=== PATIENT | female | born 1960 | race Caucasian/White ===

== ENCOUNTER 2021-02-01 08:49 | Inpatient (IN) | payer OTHER ==
[2021-02-01 10:21] LABS: #Eosinphils 0.4 thou/uL (0.0-0.7); #Lymphocytes 0.7 thou/uL (1.20-3.40); #Monocytes 0.8 thou/uL (0.11-0.59); #Neutrophils 4.6 thou/uL (1.40-6.50); %Basophils 0.6 % (0.0-1.0); %Lymphocytes 10.9 % (21.0-51.0); %Monocytes 11.7 % (0.0-10.0); %Neutrophils 70.8 % (42.0-75.0); Hemoglobin 10.8 g/dL (12.0-16.0); Mean Corpuscular HGB CONC 34.9 g/dL (32.0-36.0); Mean Corpuscular Hemoglobin 33.4 pg (27.0-31.0); Mean Corpuscular Volume 95.7 fL (78.0-98.0); Mean Platelet Volume 6.4 fL (7.4-10.4); Platelet Count 274 thou/uL (130-400); RBC Distribution Width 13.2 % (11.5-14.5); Red Blood Cell (RBC) Count 3.24 mill/uL (4.20-5.40); White Blood Cell (WBC) Count 6.6 thou/uL (4.8-10.8)
[2021-02-01 10:36] LABS: SARS-CoV-2 NAA Rapid Test Not Detected (NotDetected)
[2021-02-01 10:41] LABS: ALT (SGPT) 33 U/L (8-55); AST (SGOT) 37 U/L (5-34); Albumin 3.1 g/dL (3.4-4.8); Alkaline Phosphatase 173 U/L (40-110); Anion Gap 15 mmol/L (10-20); BUN (Urea Nitrogen) 92 mg/dL (9.8-20.1); Bilirubin, Total 0.4 mg/dL (0.2-1.2); Calc. Creatinine Clearance 0 mL/min (70-130); Carbon Dioxide 19 mmol/L (23-31); Chloride 107 mmol/L (98-107); Globulin 4.2 g/dL (2.4-3.5); Glucose 88 mg/dL (80-115); Potassium 3.8 mmol/L (3.5-5.1); Protein, Total 7.3 g/dL (5.8-8.1); Sodium 137 mmol/L (136-145)
[2021-02-01] MEDS ORDERED: Dextrose 50% Abboject 50 ML SYRINGE SLOW IVP PRN (12:34)
[2021-02-01] MEDS ORDERED: Dextrose 5% in Water 1,000 ML IV PRN (12:34)
[2021-02-01] MEDS ORDERED: Heparin 10,000 UNITS/ 10 ML VIAL ONE (12:40)
[2021-02-01] MEDS ORDERED: Bupivacaine PF 0.5% 30 ML VIAL ONE (12:40)
[2021-02-01] MEDS ORDERED: Heparin 5,000 UNITS/ML VIAL ONE (12:40)
[2021-02-01] MEDS ORDERED: Sodium Chloride 0.9% 20 ML ONE (12:40)
[2021-02-01] MEDS ORDERED: Protamine Sulfate 50 MG/5 ML VIAL ONE (12:40)
[2021-02-01] MEDS ORDERED: Lidocaine 1% w/Epinephrine 1:100K 20 ML VIAL ONE (12:40)
[2021-02-01] MEDS ORDERED: Fentanyl 100 MCG/2 ML VIAL ONE (12:51)
[2021-02-01] MEDS ORDERED: Midazolam HCl 2 mg/2 ml Vial ONE (12:51)
[2021-02-01] MEDS ORDERED: CEFAZOLIN 1 GM VIAL ONE (13:07)
[2021-02-01] MEDS ORDERED: Sodium Chloride 0.9% 100 ML ONE (13:07)
[2021-02-01] MEDS ORDERED: Lidocaine 1% PF 5 ML VIAL ONE (13:37)
[2021-02-01] MEDS ORDERED: Dexamethasone 20 MG/5 ML VIAL ONE (13:37)
[2021-02-01] MEDS ORDERED: Ondansetron PF 4 MG/2 ML Vial ONE (13:37)
[2021-02-01] MEDS ORDERED: PROPOFOL 200 MG/20 ML VIAL ONE (13:37)
[2021-02-01] MEDS ORDERED: Labetalol HCl 100 MG/20 ML VIAL ONE (15:29)
[2021-02-01 16:36] VITALS: BMI 20.5
[2021-02-01] MEDS ORDERED: Prevnar 13-Val Conj/PF 0.5 ML SYRINGE IM ONE (17:00)
[2021-02-01] MEDS ORDERED: FLU VACC QS2021-22(6MOS UP)/PF 60 MCG/0.5 ML SYRINGE IM ONE (17:00)
[2021-02-01] MEDS ORDERED: Gabapentin 100 MG CAP PO PRN (17:15)
[2021-02-01] MEDS ORDERED: Labetalol 100 MG TAB PO PRN (17:15)
[2021-02-01] MEDS ORDERED: cloNIDine 0.3mg/24 Hour PATCH TD SCH ×2 (17:21→21:00)
[2021-02-01] MEDS ORDERED: Albuterol Sulfate 2.5 mg/3 ml Neb NEB PRN (17:30)
[2021-02-01] MEDS: Acetaminophen 325 MG TAB PO PRN (20:27)
[2021-02-01] MEDS: Amitriptyline HCl 25 MG TAB PO SCH (20:27)
[2021-02-01] MEDS: hydrALAZINE 25 MG TAB PO SCH (20:27)
[2021-02-01] MEDS: HumaLOG 300 UNITS/3 ML VIAL SC PRN (20:28)
[2021-02-02] MEDS: HumaLOG 300 UNITS/3 ML VIAL SC PRN ×3 (04:55→20:19)
[2021-02-02 06:27] LABS: #Eosinphils 0.1 thou/uL (0.0-0.7); #Lymphocytes 0.6 thou/uL (1.20-3.40); #Monocytes 0.9 thou/uL (0.11-0.59); #Neutrophils 5.4 thou/uL (1.40-6.50); %Basophils 0.3 % (0.0-1.0); %Eosinophils 0.8 % (0.0-10.0); %Lymphocytes 9.3 % (21.0-51.0); %Monocytes 12.1 % (0.0-10.0); %Neutrophils 77.6 % (42.0-75.0); Hemoglobin 8.5 g/dL (12.0-16.0); Mean Corpuscular HGB CONC 33.4 g/dL (32.0-36.0); Mean Corpuscular Hemoglobin 32.3 pg (27.0-31.0); Mean Corpuscular Volume 96.9 fL (78.0-98.0); Mean Platelet Volume 6.6 fL (7.4-10.4); Platelet Count 239 thou/uL (130-400); Red Blood Cell (RBC) Count 2.64 mill/uL (4.20-5.40)
[2021-02-02 06:51] LABS: Anion Gap 17 mmol/L (10-20); BUN (Urea Nitrogen) 93 mg/dL (9.8-20.1); Calc. Creatinine Clearance 12 mL/min (70-130); Calcium 7.9 mg/dL (7.8-10.44); Carbon Dioxide 16 mmol/L (23-31); Chloride 107 mmol/L (98-107); Glucose 202 mg/dL (80-115); Potassium 4.2 mmol/L (3.5-5.1); Sodium 136 mmol/L (136-145)
[2021-02-02] MEDS: NIFEdipine XL 60 MG TAB PO SCH (09:37)
[2021-02-02] MEDS: hydrALAZINE 25 MG TAB PO SCH ×3 (09:37→20:17)
[2021-02-02] MEDS: Carvedilol 25 MG TAB PO SCH ×2 (09:37→17:00)
[2021-02-02] MEDS ORDERED: Heparin 10,000 UNITS/ 10 ML VIAL ONE (09:47)
[2021-02-02] MEDS ORDERED: Tuberculin PPD 0.1 ML VIAL I-DERMAL SCH (10:45)
[2021-02-02 11:17] LABS: HBSAB Concentration Less than 8.00 mIU/mL; HBSAg Index 0.21 S/CO (0-0.99); Hep B Core Total Ab Non-Reactive (NonReactive); Hep B Core Total Index 0.12 S/CO (0-0.79); Hep B Surf AB Non-Reactive (NonReactive); Hep B Surf Ag Non-Reactive S/CO (NonReactive)
[2021-02-02 11:25] LABS: Hep C IgG Ab Reflex HepC Qnt (NonReactive); Hep C Index 11.47 S/CO (0-0.79)
[2021-02-02] MEDS: Acetaminophen 325 MG TAB PO PRN (11:48)
[2021-02-02] MEDS: Amitriptyline HCl 25 MG TAB PO SCH (20:18)
[2021-02-03] MEDS: HumaLOG 300 UNITS/3 ML VIAL SC PRN ×2 (04:51→16:30)
[2021-02-03] MEDS ORDERED: hydrALAZINE 20 MG/ML VIAL SLOW IVP SCH (05:15)
[2021-02-03 05:18] LABS: #Eosinphils 0.2 thou/uL (0.0-0.7); #Lymphocytes 0.7 thou/uL (1.20-3.40); #Monocytes 0.7 thou/uL (0.11-0.59); #Neutrophils 3.2 thou/uL (1.40-6.50); %Basophils 0.5 % (0.0-1.0); %Eosinophils 5.1 % (0.0-10.0); %Lymphocytes 14.5 % (21.0-51.0); %Monocytes 13.9 % (0.0-10.0); %Neutrophils 65.9 % (42.0-75.0); Hemoglobin 7.4 g/dL (12.0-16.0); Mean Corpuscular HGB CONC 33.3 g/dL (32.0-36.0); Mean Corpuscular Hemoglobin 32.2 pg (27.0-31.0); Mean Corpuscular Volume 96.8 fL (78.0-98.0); Mean Platelet Volume 6.4 fL (7.4-10.4); Platelet Count 197 thou/uL (130-400); RBC Distribution Width 13.1 % (11.5-14.5); White Blood Cell (WBC) Count 4.8 thou/uL (4.8-10.8)
[2021-02-03 05:45] LABS: Anion Gap 14 mmol/L (10-20); BUN (Urea Nitrogen) 63 mg/dL (9.8-20.1); Calc. Creatinine Clearance 14 mL/min (70-130); Calcium 7.4 mg/dL (7.8-10.44); Carbon Dioxide 24 mmol/L (23-31); Chloride 102 mmol/L (98-107); Glucose 244 mg/dL (80-115); Sodium 136 mmol/L (136-145)
[2021-02-03] MEDS: hydrALAZINE 25 MG TAB PO SCH ×3 (08:29→21:47)
[2021-02-03] MEDS: Calcitriol 0.25 MCG CAP PO SCH (08:30)
[2021-02-03] MEDS: NIFEdipine XL 60 MG TAB PO SCH (08:30)
[2021-02-03] MEDS: Carvedilol 25 MG TAB PO SCH ×2 (08:30→16:30)
[2021-02-03] MEDS ORDERED: Epoetin (ESRD) 10,000 UNITS/ML VIAL SC SCH (09:45)
[2021-02-03] MEDS ORDERED: Heparin 10,000 UNITS/ 10 ML VIAL ONE (09:47)
[2021-02-03] MEDS ORDERED: EPOETIN ALFA-EPBX (ESRD) 10,000 UNIT/ML VIAL SC SCH (12:00)
[2021-02-03] MEDS: Amitriptyline HCl 25 MG TAB PO SCH (21:48)
[2021-02-03] MEDS: Lantus 1000 UNITS/10 ML VIAL SC SCH (21:51)
[2021-02-04] MEDS: Acetaminophen 325 MG TAB PO PRN ×2 (03:46→20:52)
[2021-02-04 05:00] LABS: #Eosinphils 0.3 thou/uL (0.0-0.7); #Lymphocytes 0.8 thou/uL (1.20-3.40); #Monocytes 0.8 thou/uL (0.11-0.59); #Neutrophils 4.2 thou/uL (1.40-6.50); %Basophils 0.3 % (0.0-1.0); %Eosinophils 5.3 % (0.0-10.0); %Lymphocytes 13.5 % (21.0-51.0); %Monocytes 12.8 % (0.0-10.0); %Neutrophils 68.1 % (42.0-75.0); Hemoglobin 7.6 g/dL (12.0-16.0); Mean Corpuscular HGB CONC 33.5 g/dL (32.0-36.0); Mean Corpuscular Hemoglobin 32.7 pg (27.0-31.0); Mean Corpuscular Volume 97.4 fL (78.0-98.0); Mean Platelet Volume 6.3 fL (7.4-10.4); Platelet Count 178 thou/uL (130-400); RBC Distribution Width 13.1 % (11.5-14.5); Red Blood Cell (RBC) Count 2.33 mill/uL (4.20-5.40); White Blood Cell (WBC) Count 6.1 thou/uL (4.8-10.8)
[2021-02-04 05:25] LABS: Anion Gap 12 mmol/L (10-20); BUN (Urea Nitrogen) 40 mg/dL (9.8-20.1); Calc. Creatinine Clearance 18 mL/min (70-130); Calcium 7.7 mg/dL (7.8-10.44); Carbon Dioxide 26 mmol/L (23-31); Chloride 99 mmol/L (98-107); Glucose 102 mg/dL (80-115); Magnesium 1.9 mg/dL (1.6-2.6); Phosphorus 4.5 mg/dL (2.3-4.7); Potassium 3.6 mmol/L (3.5-5.1); Sodium 133 mmol/L (136-145)
[2021-02-04] MEDS: hydrALAZINE 25 MG TAB PO SCH ×3 (09:33→20:52)
[2021-02-04] MEDS: NIFEdipine XL 60 MG TAB PO SCH (09:37)
[2021-02-04] MEDS: Carvedilol 25 MG TAB PO SCH ×2 (09:37→17:50)
[2021-02-04 10:39] LABS: HCV log10 5.949 (.); Hep C PCR-Quant 890000 IU/mL (.)
[2021-02-04 19:57] LABS: Anion Gap 14 mmol/L (10-20); BUN (Urea Nitrogen) 49 mg/dL (9.8-20.1); Calc. Creatinine Clearance 13 mL/min (70-130); Calcium 7.9 mg/dL (7.8-10.44); Carbon Dioxide 25 mmol/L (23-31); Chloride 98 mmol/L (98-107); Glucose 219 mg/dL (80-115); Potassium 4.3 mmol/L (3.5-5.1); Sodium 133 mmol/L (136-145)
[2021-02-04] MEDS: Amitriptyline HCl 25 MG TAB PO SCH (20:52)
[2021-02-04] MEDS: Lantus 1000 UNITS/10 ML VIAL SC SCH (21:00)
[2021-02-05 00:54] LABS: Legionella Urinary Ag Negative (Negative); Strep pneumo Urine Ag NEGATIVE (NEGATIVE)
[2021-02-05] MEDS: hydrALAZINE 20 MG/ML VIAL SLOW IVP PRN (02:09)
[2021-02-05 06:53] LABS: #Eosinphils 0.3 thou/uL (0.0-0.7); #Lymphocytes 0.7 thou/uL (1.20-3.40); #Monocytes 0.6 thou/uL (0.11-0.59); %Basophils 0.2 % (0.0-1.0); %Eosinophils 6.9 % (0.0-10.0); %Lymphocytes 14.2 % (21.0-51.0); %Monocytes 12.7 % (0.0-10.0); Hemoglobin 8.8 g/dL (12.0-16.0); Mean Corpuscular HGB CONC 32.9 g/dL (32.0-36.0); Mean Corpuscular Hemoglobin 31.9 pg (27.0-31.0); Mean Platelet Volume 6.7 fL (7.4-10.4); Platelet Count 174 thou/uL (130-400); RBC Distribution Width 13.1 % (11.5-14.5); Red Blood Cell (RBC) Count 2.77 mill/uL (4.20-5.40); White Blood Cell (WBC) Count 4.6 thou/uL (4.8-10.8)
[2021-02-05 07:15] LABS: Anion Gap 13 mmol/L (10-20); BUN (Urea Nitrogen) 58 mg/dL (9.8-20.1); Calc. Creatinine Clearance 13 mL/min (70-130); Calcium 7.8 mg/dL (7.8-10.44); Carbon Dioxide 25 mmol/L (23-31); Chloride 99 mmol/L (98-107); Glucose 141 mg/dL (80-115); Magnesium 2.1 mg/dL (1.6-2.6); Phosphorus 6.8 mg/dL (2.3-4.7); Potassium 3.8 mmol/L (3.5-5.1); Sodium 133 mmol/L (136-145)
[2021-02-05] MEDS ORDERED: Heparin 10,000 UNITS/ 10 ML VIAL ONE (08:07)
[2021-02-05] MEDS: Carvedilol 25 MG TAB PO SCH ×2 (12:53→17:50)
[2021-02-05] MEDS: hydrALAZINE 25 MG TAB PO SCH ×3 (12:53→21:11)
[2021-02-05] MEDS: NIFEdipine XL 60 MG TAB PO SCH (12:56)
[2021-02-05] MEDS: Calcitriol 0.25 MCG CAP PO SCH (12:57)
[2021-02-05] MEDS: Amitriptyline HCl 25 MG TAB PO SCH (21:12)
[2021-02-05] MEDS: HumaLOG 300 UNITS/3 ML VIAL SC PRN (21:18)
[2021-02-05] MEDS: Lantus 1000 UNITS/10 ML VIAL SC SCH (21:18)
[2021-02-06] MEDS: hydrALAZINE 20 MG/ML VIAL SLOW IVP PRN ×2 (04:28→20:18)
[2021-02-06] MEDS: HumaLOG 300 UNITS/3 ML VIAL SC PRN ×2 (04:33→20:22)
[2021-02-06 05:22] LABS: #Eosinphils 0.3 thou/uL (0.0-0.7); #Lymphocytes 0.7 thou/uL (1.20-3.40); #Monocytes 0.6 thou/uL (0.11-0.59); #Neutrophils 3.8 thou/uL (1.40-6.50); %Basophils 0.1 % (0.0-1.0); %Eosinophils 5.8 % (0.0-10.0); %Lymphocytes 12.7 % (21.0-51.0); %Monocytes 11.6 % (0.0-10.0); %Neutrophils 69.8 % (42.0-75.0); Hemoglobin 8.8 g/dL (12.0-16.0); Mean Corpuscular HGB CONC 33.6 g/dL (32.0-36.0); Mean Corpuscular Hemoglobin 32.9 pg (27.0-31.0); Mean Corpuscular Volume 97.9 fL (78.0-98.0); Mean Platelet Volume 6.7 fL (7.4-10.4); Platelet Count 170 thou/uL (130-400); RBC Distribution Width 13.4 % (11.5-14.5); Red Blood Cell (RBC) Count 2.68 mill/uL (4.20-5.40); White Blood Cell (WBC) Count 5.4 thou/uL (4.8-10.8)
[2021-02-06 06:18] LABS: Anion Gap 12 mmol/L (10-20); BUN (Urea Nitrogen) 37 mg/dL (9.8-20.1); Calc. Creatinine Clearance 16 mL/min (70-130); Carbon Dioxide 28 mmol/L (23-31); Chloride 97 mmol/L (98-107); Glucose 133 mg/dL (80-115); Potassium 3.8 mmol/L (3.5-5.1); Sodium 133 mmol/L (136-145)
[2021-02-06 06:29] LABS: Prothrombin Time 13.5 sec (12.0-14.7)
[2021-02-06 06:30] LABS: PTT 33.3 sec (22.9-36.1)
[2021-02-06 06:39] LABS: D-Dimer Test 5.25 *mcg/mL (0.27-0.43)
[2021-02-06] MEDS ORDERED: NIFEdipine XL 60 MG TAB PO SCH (08:09)
[2021-02-06] MEDS: Carvedilol 25 MG TAB PO SCH ×2 (08:50→17:34)
[2021-02-06] MEDS: hydrALAZINE 25 MG TAB PO SCH ×3 (08:50→20:13)
[2021-02-06] MEDS ORDERED: Iopamidol-370 76% 500 ML 1 ML ONE (09:18)
[2021-02-06] MEDS: NIFEdipine XL 90 MG TAB PO SCH (12:09)
[2021-02-06] MEDS ORDERED: Labetalol HCl 100 MG/20 ML VIAL SLOW IVP PRN (14:00)
[2021-02-06] MEDS: Amitriptyline HCl 25 MG TAB PO SCH (20:13)
[2021-02-06] MEDS: Lantus 1000 UNITS/10 ML VIAL SC SCH (20:14)
[2021-02-07] MEDS: hydrALAZINE 20 MG/ML VIAL SLOW IVP PRN (01:01)
[2021-02-07 06:23] LABS: #Eosinphils 0.3 thou/uL (0.0-0.7); #Lymphocytes 0.7 thou/uL (1.20-3.40); #Monocytes 0.7 thou/uL (0.11-0.59); #Neutrophils 4.8 thou/uL (1.40-6.50); %Basophils 0.5 % (0.0-1.0); %Eosinophils 4.3 % (0.0-10.0); %Lymphocytes 11.2 % (21.0-51.0); Hemoglobin 8.6 g/dL (12.0-16.0); Mean Corpuscular HGB CONC 32.3 g/dL (32.0-36.0); Mean Corpuscular Hemoglobin 31.8 pg (27.0-31.0); Mean Corpuscular Volume 98.5 fL (78.0-98.0); Mean Platelet Volume 6.4 fL (7.4-10.4); Platelet Count 171 thou/uL (130-400); RBC Distribution Width 13.5 % (11.5-14.5); White Blood Cell (WBC) Count 6.6 thou/uL (4.8-10.8)
[2021-02-07 06:44] LABS: Anion Gap 12 mmol/L (10-20); BUN (Urea Nitrogen) 47 mg/dL (9.8-20.1); Calc. Creatinine Clearance 12 mL/min (70-130); Carbon Dioxide 28 mmol/L (23-31); Chloride 98 mmol/L (98-107); Glucose 78 mg/dL (80-115); Magnesium 2.1 mg/dL (1.6-2.6); Potassium 4.1 mmol/L (3.5-5.1); Sodium 134 mmol/L (136-145)
[2021-02-07] MEDS ORDERED: Heparin 10,000 UNITS/ 10 ML VIAL ONE (08:08)
[2021-02-07] MEDS ORDERED: Lisinopril 5 MG TAB PO SCH (09:00)
[2021-02-07] MEDS: hydrALAZINE 25 MG TAB PO SCH ×3 (09:40→21:13)
[2021-02-07] MEDS: NIFEdipine XL 90 MG TAB PO SCH (09:41)
[2021-02-07] MEDS: Carvedilol 25 MG TAB PO SCH ×2 (09:41→16:42)
[2021-02-07] MEDS: Lisinopril 20 MG TAB PO SCH (09:41)
[2021-02-07] MEDS: HumaLOG 300 UNITS/3 ML VIAL SC PRN (16:42)
[2021-02-07] MEDS: Amitriptyline HCl 25 MG TAB PO SCH (21:14)
[2021-02-07] MEDS: Lantus 1000 UNITS/10 ML VIAL SC SCH (21:31)
[2021-02-08 05:23] VITALS: TEMP 97.9
[2021-02-08 06:34] LABS: #Eosinphils 0.3 thou/uL (0.0-0.7); #Lymphocytes 0.7 thou/uL (1.20-3.40); #Monocytes 0.8 thou/uL (0.11-0.59); %Basophils 0.6 % (0.0-1.0); %Eosinophils 5.8 % (0.0-10.0); %Lymphocytes 11.7 % (21.0-51.0); %Monocytes 13.1 % (0.0-10.0); %Neutrophils 68.8 % (42.0-75.0); Mean Corpuscular HGB CONC 33.6 g/dL (32.0-36.0); Mean Corpuscular Hemoglobin 33.3 pg (27.0-31.0); Mean Corpuscular Volume 99.2 fL (78.0-98.0); Mean Platelet Volume 6.7 fL (7.4-10.4); Platelet Count 158 thou/uL (130-400); White Blood Cell (WBC) Count 5.8 thou/uL (4.8-10.8)
[2021-02-08 06:53] LABS: Anion Gap 11 mmol/L (10-20); BUN (Urea Nitrogen) 36 mg/dL (9.8-20.1); Calc. Creatinine Clearance 15 mL/min (70-130); Calcium 8.1 mg/dL (7.8-10.44); Carbon Dioxide 27 mmol/L (23-31); Chloride 99 mmol/L (98-107); Glucose 137 mg/dL (80-115); Magnesium 2.2 mg/dL (1.6-2.6); Phosphorus 5.3 mg/dL (2.3-4.7); Potassium 4.2 mmol/L (3.5-5.1); Sodium 133 mmol/L (136-145)
[2021-02-08] MEDS ORDERED: cloNIDine 0.3mg/24 Hour PATCH TD SCH (09:00)
[2021-02-08] MEDS: Carvedilol 25 MG TAB PO SCH (11:33)
[2021-02-08] MEDS: hydrALAZINE 25 MG TAB PO SCH (11:34)
[2021-02-08] MEDS: Calcitriol 0.25 MCG CAP PO SCH (11:34)
[2021-02-08] MEDS: NIFEdipine XL 90 MG TAB PO SCH (11:34)
[2021-02-08] MEDS: Lisinopril 20 MG TAB PO SCH (11:34)
[2021-02-08] MEDS ORDERED: Heparin 10,000 UNITS/ 10 ML VIAL ONE (11:49)
[2021-02-08 12:29] VITALS: BP 160/62
== END 2021-02-08 15:40 | disposition home or self-care (01) | DRG 673 ==
LOC: ERS 08:49 → T4-B 11:10
PROVIDERS: ADMIT Specialist; ATTEND Family Medicine
PROC: 031B0ZF Bypass Right Radial Artery to Lower Arm Vein, Open Approach (ICD-10-PCS; principal; 2021-02-01)
PROC: 0JH63XZ Insertion of Tunneled Vascular Access Device into Chest Subcutaneous Tissue and Fascia, Percutaneous Approach (ICD-10-PCS; 2021-02-01)
PROC: 02HV33Z Insertion of Infusion Device into Superior Vena Cava, Percutaneous Approach (ICD-10-PCS; 2021-02-01)
PROC: B548ZZA Ultrasonography of Superior Vena Cava, Guidance (ICD-10-PCS; 2021-02-01)
PROC: B5181ZA Fluoroscopy of Superior Vena Cava using Low Osmolar Contrast, Guidance (ICD-10-PCS; 2021-02-01)
PROC: 5A1D70Z Performance of Urinary Filtration, Intermittent, Less than 6 Hours Per Day (ICD-10-PCS; 2021-02-01)
PROC: 30233N1 Transfusion of Nonautologous Red Blood Cells into Peripheral Vein, Percutaneous Approach (ICD-10-PCS; 2021-02-04)
DX: N17.9 Acute kidney failure, unspecified (principal); J96.01 Acute respiratory failure with hypoxia; I50.33 Acute on chronic diastolic (congestive) heart failure; E87.1 Hypo-osmolality and hyponatremia; I13.2 Hypertensive heart and chronic kidney disease with heart failure and with stage 5 chronic kidney disease, or end stage renal disease; N18.6 End stage renal disease; Z20.822 Contact with and (suspected) exposure to COVID-19; E11.22 Type 2 diabetes mellitus with diabetic chronic kidney disease; B19.20 Unspecified viral hepatitis C without hepatic coma; D63.1 Anemia in chronic kidney disease; F17.210 Nicotine dependence, cigarettes, uncomplicated; Z79.4 Long term (current) use of insulin; Z79.899 Other long term (current) drug therapy
CPT/HCPCS: 36415; 36416; 36430; 71045; 71275; 76705; 80048; 80053; 83735; 84100; 84145; 85025; 85379; 85610; 85730; 86140; 86580; 86704; 86706; 86803; 86850; 86900; 86901; 87340; 87449; 87522; 87899; 90935; 93005; 93970; 94640; C1751; C1752; C1776; G0257; J0360; J0690; J1100; J1644; J1815; J2250; J2405; J2704; J2720; J3010; J3490; J7620; P9016; Q5105; Q9967; S0020; U0002

== ENCOUNTER 2021-02-11 07:44 | Outpatient (CLI) | payer OTHER | END 2021-02-11 07:45 | disposition home or self-care (01) | LOC: NM 07:44 | PROVIDERS: ATTEND Student in an Organized Health Care Education/Training Program | DX: E21.3 Hyperparathyroidism, unspecified (principal); E04.1 Nontoxic single thyroid nodule | CPT/HCPCS: 78072; A9500 ==

== ENCOUNTER 2021-03-04 07:03 | Day surgery (SDC) | payer OTHER ==
[2021-03-04 08:37] VITALS: BP 191/74
[2021-03-04] MEDS ORDERED: Lisinopril 20 MG TAB PO SCH (08:45)
[2021-03-04] MEDS ORDERED: Carvedilol 25 MG TAB PO SCH (08:45)
[2021-03-04] MEDS ORDERED: NIFEdipine XL 90 MG TAB PO SCH (08:45)
[2021-03-04] MEDS ORDERED: hydrALAZINE 25 MG TAB PO SCH (08:45)
[2021-03-04] MEDS ORDERED: FLU VACC QS2021-22(6MOS UP)/PF 60 MCG/0.5 ML SYRINGE IM ONE (09:00)
[2021-03-04] MEDS ORDERED: cloNIDine 0.1 MG TAB PO PRN (09:47)
[2021-03-04] MEDS ORDERED: cloNIDine 0.1 MG TAB ONE (09:48)
[2021-03-04] MEDS ORDERED: cloNIDine 0.1 MG TAB PO SCH (10:00)
[2021-03-04] MEDS ORDERED: Fentanyl 100 MCG/2 ML VIAL ONE (10:17)
[2021-03-04] MEDS ORDERED: Heparin 1,000 UNITS/ML VIAL ONE (10:49)
[2021-03-04] MEDS ORDERED: Iopamidol 300 61% 100 ML VIAL FS ONE (14:26)
== END 2021-03-04 12:00 | disposition home or self-care (01) ==
LOC: SPEC 07:03
PROVIDERS: ATTEND Specialist
PROC: B51W1ZZ Fluoroscopy of Dialysis Shunt/Fistula using Low Osmolar Contrast (ICD-10-PCS; principal; 2021-03-04)
DX: N18.6 End stage renal disease (principal); Z79.4 Long term (current) use of insulin; Z79.899 Other long term (current) drug therapy; Z99.2 Dependence on renal dialysis
CPT/HCPCS: 36901; J1644; J3010; Q9967

== ENCOUNTER 2021-03-18 12:26 | Outpatient (CLI) | payer OTHER ==
[2021-03-19 09:12] LABS: SARS-CoV-2 PCR by NAA Not Detected (NotDetected)
== END 2021-03-18 12:27 | disposition home or self-care (01) ==
LOC: LABBT 12:26
PROVIDERS: ATTEND Specialist
DX: Z01.818 Encounter for other preprocedural examination (principal); N18.6 End stage renal disease; Z20.822 Contact with and (suspected) exposure to COVID-19
CPT/HCPCS: 93005; 93010; U0003; U0005

== ENCOUNTER 2021-03-22 22:23 | Emergency (ER) | payer OTHER ==
[2021-03-22] MEDS ORDERED: HYDROcodone/Acetaminophen 7.5/325 mg Tablet ONE (23:26)
[2021-03-22] MEDS ORDERED: Ketorolac Tromethamine 30 MG/ML VIAL ONE (23:27)
[2021-03-23] MEDS ORDERED: traMADol HCl 50 MG TAB ONE (01:39)
[2021-03-23] MEDS ORDERED: Morphine IR 10 MG/5 ML UDCUP PO SCH (01:45)
== END 2021-03-23 01:47 | disposition home or self-care (01) ==
LOC: ERS 22:23
DX: M62.838 Other muscle spasm (principal); M25.552 Pain in left hip; F17.210 Nicotine dependence, cigarettes, uncomplicated; I11.0 Hypertensive heart disease with heart failure; I50.9 Heart failure, unspecified; E11.9 Type 2 diabetes mellitus without complications; J43.9 Emphysema, unspecified; W01.198A Fall on same level from slipping, tripping and stumbling with subsequent striking against other object, initial encounter; Z79.4 Long term (current) use of insulin; Z79.899 Other long term (current) drug therapy
CPT/HCPCS: 96372; J1885

== ENCOUNTER 2021-03-25 12:45 | Outpatient (CLI) | payer OTHER ==
[2021-03-27 00:06] LABS: SARS-CoV-2 PCR by NAA Not Detected (NotDetected)
== END 2021-03-25 12:46 | disposition home or self-care (01) ==
LOC: LABBT 12:45
PROVIDERS: ATTEND Specialist
DX: Z01.818 Encounter for other preprocedural examination (principal); N18.6 End stage renal disease; Z20.822 Contact with and (suspected) exposure to COVID-19
CPT/HCPCS: 93005; 93010; U0003; U0005

== ENCOUNTER 2021-03-29 21:17 | Emergency (ER) | payer SELFPAY ==
[2021-03-30] MEDS ORDERED: Fentanyl 100 MCG/2 ML VIAL ONE (11:21)
== END 2021-03-29 22:04 | disposition left against medical advice (07) ==
LOC: ERS 21:17
DX: Z53.21 Procedure and treatment not carried out due to patient leaving prior to being seen by health care provider (principal)
CPT/HCPCS: J3010

== ENCOUNTER 2021-03-29 22:14 | Emergency (ER) | payer SELFPAY ==
[2021-03-29] MEDS ORDERED: Diazepam 5 MG TAB ONE (23:07)
== END 2021-03-29 23:12 | disposition home or self-care (01) ==
LOC: ERS 22:14
DX: G89.29 Other chronic pain (principal); M25.552 Pain in left hip; E11.22 Type 2 diabetes mellitus with diabetic chronic kidney disease; I12.0 Hypertensive chronic kidney disease with stage 5 chronic kidney disease or end stage renal disease; N18.6 End stage renal disease; Z99.2 Dependence on renal dialysis; F17.200 Nicotine dependence, unspecified, uncomplicated
CPT/HCPCS: 99283

== ENCOUNTER 2021-03-30 10:25 | Day surgery (SDC) | payer OTHER, SELFPAY ==
[2021-03-18 14:52] VITALS: BMI 17.8
[2021-03-30] MEDS ORDERED: Protamine Sulfate 50 MG/5 ML VIAL ONE (11:26)
[2021-03-30] MEDS ORDERED: Bupivacaine 0.25% HCL 30 ML VIAL ONE ×2 (11:26→11:33)
[2021-03-30] MEDS ORDERED: Xylocaine 1% w/ Epi 1:100K 10 ML VIAL ONE (11:26)
[2021-03-30] MEDS ORDERED: Bupivacaine PF 0.5% 30 ML VIAL ONE (11:26)
[2021-03-30] MEDS ORDERED: Lidocaine 2% PF 5 ML VIAL ONE (11:26)
[2021-03-30] MEDS ORDERED: Heparin 5,000 UNITS/ML VIAL ONE (11:26)
[2021-03-30] MEDS ORDERED: Heparin 10,000 UNITS/ 10 ML VIAL ONE (11:26)
[2021-03-30 11:32] LABS: #Eosinphils 0.3 thou/uL (0.0-0.7); #Lymphocytes 1.1 thou/uL (1.20-3.40); #Monocytes 0.9 thou/uL (0.11-0.59); #Neutrophils 5.2 thou/uL (1.40-6.50); %Basophils 0.2 % (0.0-1.0); %Eosinophils 3.8 % (0.0-10.0); %Lymphocytes 14.6 % (21.0-51.0); %Monocytes 11.3 % (0.0-10.0); %Neutrophils 70.1 % (42.0-75.0); Hemoglobin 11.5 g/dL (12.0-16.0); Mean Corpuscular HGB CONC 33.4 g/dL (32.0-36.0); Mean Corpuscular Hemoglobin 33.4 pg (27.0-31.0); Mean Platelet Volume 6.5 fL (7.4-10.4); Platelet Count 278 thou/uL (130-400); RBC Distribution Width 13.9 % (11.5-14.5); Red Blood Cell (RBC) Count 3.44 mill/uL (4.20-5.40); White Blood Cell (WBC) Count 7.5 thou/uL (4.8-10.8)
[2021-03-30] MEDS ORDERED: Dextrose 50% Abboject 50 ML SYRINGE ONE ×2 (11:50→12:47)
[2021-03-30 11:54] LABS: Anion Gap 15 mmol/L (10-20); BUN (Urea Nitrogen) 62 mg/dL (9.8-20.1); Calc. Creatinine Clearance 13 mL/min (70-130); Carbon Dioxide 28 mmol/L (23-31); Chloride 98 mmol/L (98-107); Potassium 3.1 mmol/L (3.5-5.1); Sodium 138 mmol/L (136-145)
[2021-03-30 12:06] LABS: Glucose 46 mg/dL (80-115)
[2021-03-30] MEDS ORDERED: ceFAZolin 2 GM/Dextrose 50 ML IVPB ONE (12:25)
[2021-03-30] MEDS ORDERED: Fentanyl 100 MCG/2 ML VIAL ONE ×2 (12:43→14:57)
[2021-03-30] MEDS ORDERED: Phenylephrine 10 MG/ML VIAL ONE (12:45)
[2021-03-30] MEDS ORDERED: PROPOFOL 200 MG/20 ML VIAL ONE (12:48)
[2021-03-30] MEDS ORDERED: ePHEDrine 50 MG/ML VIAL ONE (12:48)
[2021-03-30] MEDS ORDERED: Rocuronium Bromide 10 MG/ML (10ML VIAL) ONE (12:48)
[2021-03-30] MEDS ORDERED: Glycopyrrolate 0.2 MG/ML 5 ML SYRINGE ONE (12:48)
[2021-03-30] MEDS ORDERED: Ondansetron PF 4 MG/2 ML Vial ONE (12:48)
[2021-03-30] MEDS ORDERED: EPINEPHrine 1 MG/10 ML Abboject SYRINGE ONE (12:48)
[2021-03-30] MEDS ORDERED: Dexamethasone 20 MG/5 ML VIAL ONE (12:48)
[2021-03-30] MEDS ORDERED: Atropine Sulfate 1 mg/10 ml Syringe ONE (13:07)
[2021-03-30] MEDS ORDERED: SUGAMMADEX SODIUM 200 MG/2 ML VIAL ONE (14:10)
[2021-03-30] MEDS ORDERED: Heparin 1,000 UNITS/ML VIAL ONE (16:18)
== END 2021-03-30 17:40 | disposition home or self-care (01) ==
LOC: SDC 10:25
PROVIDERS: ATTEND Specialist
PROC: 0XJ Anatomical Regions, Upper Extremities, Inspection (ICD-10-PCS; principal; 2021-03-30)
PROC: 0WHG43Z Insertion of Infusion Device into Peritoneal Cavity, Percutaneous Endoscopic Approach (ICD-10-PCS; principal; 2021-03-30)
DX: I12.0 Hypertensive chronic kidney disease with stage 5 chronic kidney disease or end stage renal disease (principal); E11.22 Type 2 diabetes mellitus with diabetic chronic kidney disease; N18.6 End stage renal disease; T82.510A Breakdown (mechanical) of surgically created arteriovenous fistula, initial encounter; F17.210 Nicotine dependence, cigarettes, uncomplicated; S30.0XXA Contusion of lower back and pelvis, initial encounter; M47.816 Spondylosis without myelopathy or radiculopathy, lumbar region; M48.061 Spinal stenosis, lumbar region without neurogenic claudication; I70.0 Atherosclerosis of aorta; D35.02 Benign neoplasm of left adrenal gland; D35.01 Benign neoplasm of right adrenal gland; N28.1 Cyst of kidney, acquired; N20.0 Calculus of kidney; R00.1 Bradycardia, unspecified; Z79.4 Long term (current) use of insulin; Z79.899 Other long term (current) drug therapy; Z99.2 Dependence on renal dialysis
CPT/HCPCS: 36416; 72131; 80048; 85025; C1776; J0171; J0461; J0690; J1100; J1644; J2001; J2370; J2405; J2704; J2720; J3010; J3490; S0020

== ENCOUNTER 2021-04-13 16:17 | Outpatient (CLI) | payer OTHER | END 2021-04-13 16:18 | disposition home or self-care (01) | LOC: SCSMRI 16:17 | PROVIDERS: ATTEND Nurse Practitioner Family | DX: M51.16 Intervertebral disc disorders with radiculopathy, lumbar region (principal); M47.26 Other spondylosis with radiculopathy, lumbar region; M48.061 Spinal stenosis, lumbar region without neurogenic claudication | CPT/HCPCS: 72148; 74018 ==

== ENCOUNTER 2021-04-16 09:49 | Inpatient (IN) | payer OTHER ==
[~2021-04-16 09:49] MED LIST: Heparin 10,000 UNITS/ 10 ML VIAL ONE
[2021-04-16] MEDS ORDERED: Nitroglycerin 2% Ointment 1 INCH/1 GM Packet ONE (10:29)
[2021-04-16] MEDS ORDERED: Pantoprazole 40 MG VIAL ONE (10:29)
[2021-04-16] MEDS ORDERED: Ondansetron PF 4 MG/2 ML Vial ONE (10:29)
[2021-04-16] MEDS ORDERED: hydrALAZINE 20 MG/ML VIAL ONE ×2 (10:29→13:32)
[2021-04-16 10:33] LABS: #Eosinphils 0.2 thou/uL (0.0-0.7); #Lymphocytes 1.1 thou/uL (1.20-3.40); #Monocytes 0.6 thou/uL (0.11-0.59); #Neutrophils 3.1 thou/uL (1.40-6.50); %Basophils 0.5 % (0.0-1.0); %Monocytes 11.4 % (0.0-10.0); %Neutrophils 62.1 % (42.0-75.0); Hemoglobin 13.1 g/dL (12.0-16.0); Mean Corpuscular HGB CONC 34.9 g/dL (32.0-36.0); Mean Corpuscular Hemoglobin 34.5 pg (27.0-31.0); Mean Corpuscular Volume 98.9 fL (78.0-98.0); Mean Platelet Volume 6.6 fL (7.4-10.4); Platelet Count 256 thou/uL (130-400); RBC Distribution Width 13.8 % (11.5-14.5)
[2021-04-16 10:55] LABS: ALT (SGPT) 23 U/L (8-55); AST (SGOT) 37 U/L (5-34); Albumin 3.9 g/dL (3.4-4.8); Alkaline Phosphatase 142 U/L (40-110); Anion Gap 18 mmol/L (10-20); BUN (Urea Nitrogen) 54 mg/dL (9.8-20.1); Bilirubin, Total 0.4 mg/dL (0.2-1.2); CK (CPK) 30 U/L (29-168); Calc. Creatinine Clearance 0 mL/min (70-130); Carbon Dioxide 31 mmol/L (23-31); Chloride 88 mmol/L (98-107); Globulin 3.8 g/dL (2.4-3.5); Glucose 154 mg/dL (80-115); Lipase 18 U/L (8-78); Potassium 3.5 mmol/L (3.5-5.1); Protein, Total 7.7 g/dL (5.8-8.1); Sodium 133 mmol/L (136-145)
[2021-04-16 11:00] LABS: INR-International Normal Ratio 0.9; PTT 30.9 sec (22.9-36.1); Prothrombin Time 12.2 sec (12.0-14.7)
[2021-04-16] MEDS ORDERED: Iopamidol-370 76% 500 ML 1 ML ONE (11:24)
[2021-04-16] MEDS ORDERED: Morphine 4 MG/ML VIAL ONE (11:42)
[2021-04-16 11:50] LABS: Bacteria/HPF 4+ HPF (None Seen); Bilirubin Negative (Negative); Blood, Urine Trace (Negative); Clarity Clear (Clear); Glucose, Urine (Dipstick) Normal (Negative); Ketone, Urine Negative (Negative); Leukocyte 500 Leu/uL (Negative); Nitrite Negative (Negative); Protein, Urine (Dipstick) 200 mg/dL (Neg-Trace); Specific Gravity, Urine 1.012 (1.002-1.036); Squamous Epithelial 0-3 HPF (0-3); Urobilinogen Normal mg/dL (Less than 2); WBC/HPF Greater than 50 HPF (0-3)
[2021-04-16] MEDS ORDERED: Ondansetron PF 4 MG/2 ML Vial IVP PRN (12:00)
[2021-04-16] MEDS ORDERED: Ondansetron ODT 4 MG TAB SL PRN (12:00)
[2021-04-16] MEDS ORDERED: Dextrose 5% in Water 1,000 ML IV PRN (12:08)
[2021-04-16] MEDS ORDERED: Dextrose 50% Abboject 50 ML SYRINGE SLOW IVP PRN (12:08)
[2021-04-16] MEDS ORDERED: Acetaminophen 325 MG TAB PO PRN (12:10)
[2021-04-16] MEDS ORDERED: NIFEdipine XL 90 MG TAB PO SCH (12:15)
[2021-04-16] MEDS ORDERED: niCARdipine 25 MG in Sodium Chloride 0.9% 250 ML 240 ML IVPB SCH (12:45)
[2021-04-16] MEDS ORDERED: cefTRIAXone\\ROCEPHIN 1 GM VIAL ONE (13:32)
[2021-04-16 14:13] LABS: HBSAB Concentration Less than 8.00 mIU/mL; HBSAg Index 0.42 S/CO (0-0.99); Hep B Surf AB Non-Reactive (NonReactive); Hep B Surf Ag Non-Reactive S/CO (NonReactive)
[2021-04-16] MEDS: hydrALAZINE 25 MG TAB PO SCH ×2 (14:30→20:49)
[2021-04-16] MEDS: cefTRIAXone\\ROCEPHIN 1 GM in Sodium Chloride 0.9% 100 ML IVPB SCH (15:00)
[2021-04-16] MEDS: Morphine 4 MG/ML VIAL SLOW IVP PRN ×2 (15:50→20:59)
[2021-04-16 15:55] LABS: SARS-CoV-2 NAA Rapid Test Not Detected (NotDetected)
[2021-04-16] MEDS ORDERED: FLU VACC QS2021-22(6MOS UP)/PF 60 MCG/0.5 ML SYRINGE IM ONE (16:30)
[2021-04-16] MEDS ORDERED: Prevnar 13-Val Conj/PF 0.5 ML SYRINGE IM ONE (16:30)
[2021-04-16] MEDS: Carvedilol 25 MG TAB PO SCH (17:00)
[2021-04-16] MEDS: Pantoprazole 40 MG VIAL IVP SCH (20:50)
[2021-04-16] MEDS: HumaLOG 300 UNITS/3 ML VIAL SC PRN (21:29)
[2021-04-16] MEDS: hydrALAZINE 20 MG/ML VIAL SLOW IVP PRN (21:53)
[2021-04-16] MEDS ORDERED: HYDROcodone/Acetaminophen 5/325 mg Tablet PO PRN (23:22)
[2021-04-16] MEDS ORDERED: Labetalol HCl 100 MG/20 ML VIAL SLOW IVP SCH (23:30)
[2021-04-17] MEDS: hydrALAZINE 20 MG/ML VIAL SLOW IVP PRN (01:36)
[2021-04-17] MEDS: niCARdipine 25 MG in Sodium Chloride 0.9% 250 ML 250 ML IVPB SCH ×2 (02:28→05:04)
[2021-04-17] MEDS ORDERED: ALPRAZolam 0.25 MG TAB PO SCH (02:45)
[2021-04-17] MEDS ORDERED: NICARDIPINE IVPB SCH (06:30)
[2021-04-17] MEDS ORDERED: SODIUM CHLORIDE 0.9% IVPB SCH (06:30)
[2021-04-17] MEDS ORDERED: ADMIXTURE FEE CHEMO IVPB SCH (06:30)
[2021-04-17] MEDS: Morphine 4 MG/ML VIAL SLOW IVP PRN ×2 (07:45→14:58)
[2021-04-17 08:35] LABS: #Eosinphils 0.2 thou/uL (0.0-0.7); #Lymphocytes 1.1 thou/uL (1.20-3.40); #Monocytes 0.8 thou/uL (0.11-0.59); #Neutrophils 3.8 thou/uL (1.40-6.50); %Basophils 0.3 % (0.0-1.0); %Eosinophils 3.2 % (0.0-10.0); %Lymphocytes 18.6 % (21.0-51.0); %Monocytes 12.8 % (0.0-10.0); %Neutrophils 65.1 % (42.0-75.0); Hemoglobin 10.8 g/dL (12.0-16.0); Mean Corpuscular HGB CONC 33.2 g/dL (32.0-36.0); Mean Corpuscular Hemoglobin 33.1 pg (27.0-31.0); Mean Corpuscular Volume 99.6 fL (78.0-98.0); Mean Platelet Volume 6.6 fL (7.4-10.4); Platelet Count 225 thou/uL (130-400); RBC Distribution Width 13.7 % (11.5-14.5); Red Blood Cell (RBC) Count 3.28 mill/uL (4.20-5.40); White Blood Cell (WBC) Count 5.9 thou/uL (4.8-10.8)
[2021-04-17] MEDS: Carvedilol 25 MG TAB PO SCH ×2 (08:52→17:01)
[2021-04-17] MEDS: hydrALAZINE 25 MG TAB PO SCH ×3 (08:53→20:32)
[2021-04-17] MEDS: NIFEdipine XL 90 MG TAB PO SCH (08:53)
[2021-04-17] MEDS: Lisinopril 20 MG TAB PO SCH (08:53)
[2021-04-17 08:54] LABS: Anion Gap 12 mmol/L (10-20); BUN (Urea Nitrogen) 28 mg/dL (9.8-20.1); Calc. Creatinine Clearance 14 mL/min (70-130); Calcium 9.7 mg/dL (7.8-10.44); Carbon Dioxide 28 mmol/L (23-31); Chloride 100 mmol/L (98-107); Glucose 156 mg/dL (80-115); Potassium 3.2 mmol/L (3.5-5.1); Sodium 137 mmol/L (136-145)
[2021-04-17] MEDS: Pantoprazole 40 MG VIAL IVP SCH ×2 (08:54→20:32)
[2021-04-17] MEDS ORDERED: Enoxaparin Sodium 30 MG/0.3 ML SYRINGE SC SCH (09:00)
[2021-04-17] MEDS: HumaLOG 300 UNITS/3 ML VIAL SC PRN ×2 (10:40→17:01)
[2021-04-17] MEDS: cefTRIAXone\\ROCEPHIN 1 GM in Sodium Chloride 0.9% 100 ML IVPB SCH (14:54)
[2021-04-17] MEDS ORDERED: Ondansetron PF 4 MG/2 ML Vial IVP PRN (16:15)
[2021-04-17] MEDS ORDERED: diphenhydrAMINE 25 MG CAP PO PRN (16:15)
[2021-04-17] MEDS ORDERED: diphenhydrAMINE 50 MG/ML VIAL IM/IV PRN (16:15)
[2021-04-17] MEDS ORDERED: Promethazine HCl 25 MG/ML VIAL IM PRN (16:15)
[2021-04-17] MEDS ORDERED: Naloxone HCl 0.4 mg/ml Vial IV PRN (16:15)
[2021-04-17] MEDS ORDERED: Zolpidem Tartrate 5 MG TAB PO PRN (16:15)
[2021-04-17] MEDS ORDERED: Morphine Sulfate 100 MG in Dextrose 5% in Water 98 ML IV SCH (16:15)
[2021-04-18] MEDS: hydrALAZINE 20 MG/ML VIAL SLOW IVP PRN (04:26)
[2021-04-18 04:35] LABS: #Eosinphils 0.2 thou/uL (0.0-0.7); #Lymphocytes 1.3 thou/uL (1.20-3.40); #Monocytes 0.9 thou/uL (0.11-0.59); #Neutrophils 4.4 thou/uL (1.40-6.50); %Basophils 0.5 % (0.0-1.0); %Eosinophils 3.4 % (0.0-10.0); %Lymphocytes 19.3 % (21.0-51.0); %Monocytes 12.6 % (0.0-10.0); %Neutrophils 64.2 % (42.0-75.0); Hemoglobin 10.6 g/dL (12.0-16.0); Mean Corpuscular HGB CONC 32.6 g/dL (32.0-36.0); Mean Corpuscular Hemoglobin 33.1 pg (27.0-31.0); Mean Platelet Volume 6.8 fL (7.4-10.4); Platelet Count 221 thou/uL (130-400); RBC Distribution Width 13.8 % (11.5-14.5); Red Blood Cell (RBC) Count 3.21 mill/uL (4.20-5.40); White Blood Cell (WBC) Count 6.8 thou/uL (4.8-10.8)
[2021-04-18 05:13] LABS: Anion Gap 15 mmol/L (10-20); BUN (Urea Nitrogen) 36 mg/dL (9.8-20.1); Calc. Creatinine Clearance 11 mL/min (70-130); Carbon Dioxide 25 mmol/L (23-31); Chloride 100 mmol/L (98-107); Glucose 183 mg/dL (80-115); Potassium 3.4 mmol/L (3.5-5.1); Sodium 137 mmol/L (136-145)
[2021-04-18] MEDS: hydrALAZINE 25 MG TAB PO SCH ×3 (08:34→19:57)
[2021-04-18] MEDS: Lisinopril 20 MG TAB PO SCH (08:34)
[2021-04-18] MEDS: Carvedilol 25 MG TAB PO SCH ×2 (08:35→17:05)
[2021-04-18] MEDS: NIFEdipine XL 90 MG TAB PO SCH (08:35)
[2021-04-18] MEDS: Pantoprazole 40 MG VIAL IVP SCH ×2 (08:36→19:57)
[2021-04-18] MEDS: HumaLOG 300 UNITS/3 ML VIAL SC PRN ×2 (11:44→17:05)
[2021-04-18] MEDS: cefTRIAXone\\ROCEPHIN 1 GM in Sodium Chloride 0.9% 100 ML IVPB SCH (12:36)
[2021-04-19] MEDS: hydrALAZINE 20 MG/ML VIAL SLOW IVP PRN ×3 (03:54→23:47)
[2021-04-19] MEDS ORDERED: Labetalol HCl 100 MG/20 ML VIAL SLOW IVP SCH ×4 (04:00→08:15)
[2021-04-19 04:23] LABS: #Eosinphils 0.2 thou/uL (0.0-0.7); #Lymphocytes 0.9 thou/uL (1.20-3.40); #Monocytes 0.6 thou/uL (0.11-0.59); #Neutrophils 3.9 thou/uL (1.40-6.50); %Basophils 0.3 % (0.0-1.0); %Eosinophils 3.8 % (0.0-10.0); %Lymphocytes 15.8 % (21.0-51.0); %Neutrophils 69.1 % (42.0-75.0); Hemoglobin 10.5 g/dL (12.0-16.0); Mean Corpuscular HGB CONC 33.2 g/dL (32.0-36.0); Mean Corpuscular Hemoglobin 33.2 pg (27.0-31.0); Mean Corpuscular Volume 99.9 fL (78.0-98.0); Mean Platelet Volume 6.5 fL (7.4-10.4); Platelet Count 204 thou/uL (130-400); RBC Distribution Width 13.7 % (11.5-14.5); Red Blood Cell (RBC) Count 3.16 mill/uL (4.20-5.40); White Blood Cell (WBC) Count 5.7 thou/uL (4.8-10.8)
[2021-04-19 04:49] LABS: Anion Gap 15 mmol/L (10-20); BUN (Urea Nitrogen) 47 mg/dL (9.8-20.1); Calc. Creatinine Clearance 10 mL/min (70-130); Calcium 9.3 mg/dL (7.8-10.44); Carbon Dioxide 24 mmol/L (23-31); Chloride 102 mmol/L (98-107); Glucose 196 mg/dL (80-115); Potassium 3.7 mmol/L (3.5-5.1); Sodium 137 mmol/L (136-145)
[2021-04-19] MEDS ORDERED: Labetalol HCl 100 MG/20 ML VIAL ONE (07:05)
[2021-04-19] MEDS ORDERED: Labetalol HCl 100 MG/20 ML VIAL SLOW IVP PRN (08:16)
[2021-04-19] MEDS: hydrALAZINE 25 MG TAB PO SCH ×3 (08:22→20:45)
[2021-04-19] MEDS: NIFEdipine XL 90 MG TAB PO SCH (08:22)
[2021-04-19] MEDS: Pantoprazole 40 MG VIAL IVP SCH ×2 (08:22→20:45)
[2021-04-19] MEDS: Carvedilol 25 MG TAB PO SCH ×2 (08:22→15:54)
[2021-04-19] MEDS: Lisinopril 20 MG TAB PO SCH (08:22)
[2021-04-19] MEDS ORDERED: niCARdipine 40MG In NaCl 40 MG/200 ML BAG IVPB SCH (08:30)
[2021-04-19] MEDS ORDERED: niCARdipine 25 MG in Sodium Chloride 0.9% 250 ML 250 ML IVPB SCH (08:45)
[2021-04-19] MEDS ORDERED: Heparin 10,000 UNITS/ 10 ML VIAL ONE (08:51)
[2021-04-19] MEDS ORDERED: ALPRAZolam 0.5 MG TAB PO SCH (09:00)
[2021-04-19] MEDS ORDERED: Hydrochlorothiazide 25 MG TAB PO SCH (09:00)
[2021-04-19 10:58] LABS: Free T4 (Free Thyroxine) 1.03 ng/dL (0.70-1.48); Thyroid Stimulating Hormone 5.8888 uIU/mL (0.35-4.94)
[2021-04-19] MEDS: HumaLOG 300 UNITS/3 ML VIAL SC PRN ×2 (11:15→17:57)
[2021-04-19] MEDS: cefTRIAXone\\ROCEPHIN 1 GM in Sodium Chloride 0.9% 100 ML IVPB SCH (13:08)
[2021-04-19] MEDS: Ondansetron PF 4 MG/2 ML Vial IVP PRN (20:45)
[2021-04-19] MEDS ORDERED: cloNIDine 0.1 MG TAB PO PRN (23:43)
[2021-04-20 05:03] LABS: #Eosinphils 0.2 thou/uL (0.0-0.7); #Lymphocytes 1.1 thou/uL (1.20-3.40); #Monocytes 0.6 thou/uL (0.11-0.59); #Neutrophils 3.3 thou/uL (1.40-6.50); %Basophils 0.4 % (0.0-1.0); %Eosinophils 4.2 % (0.0-10.0); %Lymphocytes 20.8 % (21.0-51.0); %Monocytes 11.2 % (0.0-10.0); %Neutrophils 63.4 % (42.0-75.0); Hemoglobin 10.4 g/dL (12.0-16.0); Mean Corpuscular HGB CONC 33.2 g/dL (32.0-36.0); Mean Corpuscular Hemoglobin 33.3 pg (27.0-31.0); Mean Platelet Volume 6.4 fL (7.4-10.4); Platelet Count 202 thou/uL (130-400); RBC Distribution Width 13.8 % (11.5-14.5); Red Blood Cell (RBC) Count 3.11 mill/uL (4.20-5.40); White Blood Cell (WBC) Count 5.3 thou/uL (4.8-10.8)
[2021-04-20 05:25] LABS: Anion Gap 12 mmol/L (10-20); BUN (Urea Nitrogen) 23 mg/dL (9.8-20.1); Calc. Creatinine Clearance 15 mL/min (70-130); Calcium 9.2 mg/dL (7.8-10.44); Carbon Dioxide 26 mmol/L (23-31); Chloride 101 mmol/L (98-107); Glucose 170 mg/dL (80-115); Potassium 3.9 mmol/L (3.5-5.1); Sodium 135 mmol/L (136-145)
[2021-04-20] MEDS: Labetalol HCl 100 MG TAB PO SCH ×3 (08:35→20:53)
[2021-04-20] MEDS: NIFEdipine XL 90 MG TAB PO SCH (08:36)
[2021-04-20] MEDS: Lisinopril 20 MG TAB PO SCH (08:36)
[2021-04-20] MEDS: Pantoprazole 40 MG VIAL IVP SCH ×2 (08:38→20:12)
[2021-04-20] MEDS ORDERED: Labetalol HCl 100 MG TAB PO SCH (09:00)
[2021-04-20] MEDS ORDERED: NIFEdipine XL 60 MG TAB PO SCH (09:00)
[2021-04-20] MEDS: Carvedilol 25 MG TAB PO SCH (09:46)
[2021-04-20] MEDS: hydrALAZINE 25 MG TAB PO SCH ×3 (10:37→20:12)
[2021-04-20] MEDS: HumaLOG 300 UNITS/3 ML VIAL SC PRN (12:10)
[2021-04-20] MEDS: cefTRIAXone\\ROCEPHIN 1 GM in Sodium Chloride 0.9% 100 ML IVPB SCH (13:03)
[2021-04-20 14:35] VITALS: BMI 18.5
[2021-04-20] MEDS: Ondansetron PF 4 MG/2 ML Vial IVP PRN (20:12)
[2021-04-20] MEDS: NIFEdipine XL 60 MG TAB PO SCH (20:12)
[2021-04-21] MEDS: Labetalol HCl 100 MG TAB PO SCH ×4 (03:09→15:20)
[2021-04-21 03:12] VITALS: TEMP 97.9
[2021-04-21 05:47] LABS: #Eosinphils 0.2 thou/uL (0.0-0.7); #Monocytes 0.6 thou/uL (0.11-0.59); %Basophils 0.3 % (0.0-1.0); %Eosinophils 4.8 % (0.0-10.0); %Lymphocytes 20.3 % (21.0-51.0); %Monocytes 12.9 % (0.0-10.0); %Neutrophils 61.7 % (42.0-75.0); Hemoglobin 9.8 g/dL (12.0-16.0); Mean Corpuscular HGB CONC 33.7 g/dL (32.0-36.0); Mean Corpuscular Hemoglobin 33.9 pg (27.0-31.0); Mean Platelet Volume 6.5 fL (7.4-10.4); Platelet Count 185 thou/uL (130-400); RBC Distribution Width 13.6 % (11.5-14.5); Red Blood Cell (RBC) Count 2.88 mill/uL (4.20-5.40); White Blood Cell (WBC) Count 4.9 thou/uL (4.8-10.8)
[2021-04-21 06:02] LABS: Anion Gap 14 mmol/L (10-20); BUN (Urea Nitrogen) 36 mg/dL (9.8-20.1); Calc. Creatinine Clearance 11 mL/min (70-130); Calcium 8.9 mg/dL (7.8-10.44); Carbon Dioxide 23 mmol/L (23-31); Chloride 101 mmol/L (98-107); Glucose 181 mg/dL (80-115); Potassium 3.9 mmol/L (3.5-5.1); Sodium 134 mmol/L (136-145)
[2021-04-21] MEDS ORDERED: oxyCODONE 5 MG TAB PO PRN (08:36)
[2021-04-21] MEDS ORDERED: Heparin 10,000 UNITS/ 10 ML VIAL ONE (08:54)
[2021-04-21] MEDS: Lisinopril 20 MG TAB PO SCH ×2 (09:01→10:25)
[2021-04-21] MEDS: Acetaminophen 500 MG TAB PO SCH ×3 (09:01→13:52)
[2021-04-21] MEDS: hydrALAZINE 25 MG TAB PO SCH ×2 (09:01→10:31)
[2021-04-21] MEDS ORDERED: Lidocaine 1% PF 5 ML VIAL ONE (09:01)
[2021-04-21] MEDS ORDERED: PROPOFOL 200 MG/20 ML VIAL ONE (09:01)
[2021-04-21] MEDS: NIFEdipine XL 60 MG TAB PO SCH ×2 (09:02→10:26)
[2021-04-21] MEDS: Pantoprazole 40 MG VIAL IVP SCH ×2 (09:02→10:28)
[2021-04-21] MEDS ORDERED: hydrALAZINE 25 MG TAB PO SCH ×3 (10:22→15:00)
[2021-04-21 11:21] VITALS: BP 159/63
[2021-04-21] MEDS: cefTRIAXone\\ROCEPHIN 1 GM in Sodium Chloride 0.9% 100 ML IVPB SCH (13:53)
[2021-04-21] MEDS ORDERED: Metoclopramide HCl 10 MG/2 ML VIAL IVP SCH (18:45)
[2021-04-21] MEDS ORDERED: Polyethylene Glycol 3350 17 GM Packet PO SCH (21:00)
[2021-04-22] MEDS ORDERED: Metoclopramide HCl 10 MG/2 ML VIAL IVP SCH (04:00)
[2021-04-25 10:37] LABS: Cortisol,Free Ur 6 ug/L (Undefined); Cortisol,Ur Free 24 Hr 2 ug/24 hr (6-42)
== END 2021-04-21 21:51 | disposition home or self-care (01) | DRG 377 ==
LOC: ERS 09:49 → CCU 12:20 → 2NO 04-17 19:34 → CCU 04-19 09:20 → 2NO 04-19 13:59
PROVIDERS: ADMIT Internal Medicine; ATTEND Hospitalist
PROC: 5A1D70Z Performance of Urinary Filtration, Intermittent, Less than 6 Hours Per Day (ICD-10-PCS; 2021-04-16)
PROC: 0DB98ZX Excision of Duodenum, Via Natural or Artificial Opening Endoscopic, Diagnostic (ICD-10-PCS; principal; 2021-04-21)
PROC: 0DB78ZX Excision of Stomach, Pylorus, Via Natural or Artificial Opening Endoscopic, Diagnostic (ICD-10-PCS; 2021-04-21)
DX: K29.71 Gastritis, unspecified, with bleeding (principal); N18.6 End stage renal disease; I16.1 Hypertensive emergency; N39.0 Urinary tract infection, site not specified; E44.0 Moderate protein-calorie malnutrition; Z68.1 Body mass index [BMI] 19.9 or less, adult; N25.81 Secondary hyperparathyroidism of renal origin; I12.0 Hypertensive chronic kidney disease with stage 5 chronic kidney disease or end stage renal disease; Z20.822 Contact with and (suspected) exposure to COVID-19; E11.22 Type 2 diabetes mellitus with diabetic chronic kidney disease; G89.29 Other chronic pain; F41.9 Anxiety disorder, unspecified; M48.061 Spinal stenosis, lumbar region without neurogenic claudication; K59.03 Drug induced constipation; T40.605A Adverse effect of unspecified narcotics, initial encounter; B96.20 Unspecified Escherichia coli [E. coli] as the cause of diseases classified elsewhere; F17.210 Nicotine dependence, cigarettes, uncomplicated; D63.1 Anemia in chronic kidney disease; E87.6 Hypokalemia; R13.10 Dysphagia, unspecified; E11.43 Type 2 diabetes mellitus with diabetic autonomic (poly)neuropathy; K31.84 Gastroparesis; Z28.21 Immunization not carried out because of patient refusal; Z99.2 Dependence on renal dialysis; Z79.899 Other long term (current) drug therapy; Z79.4 Long term (current) use of insulin; Z90.89 Acquired absence of other organs; Z98.890 Other specified postprocedural states; Z98.49 Cataract extraction status, unspecified eye; Z91.81 History of falling
CPT/HCPCS: 36415; 36416; 74177; 80048; 80053; 81003; 81015; 82088; 82384; 82530; 82550; 83690; 83835; 84244; 84439; 84443; 84484; 85025; 85610; 85730; 86706; 86850; 86900; 86901; 87077; 87086; 87186; 87340; 88305; 90935; 93005; 96365; 96375; 96376; C9113; G0257; J0360; J0696; J1644; J1815; J2270; J2274; J2405; J2704; J3490; J7050; J7070; Q9967; U0002

== ENCOUNTER 2021-06-25 13:52 | Inpatient (IN) | payer OTHER ==
[~2021-06-25 13:52] MED LIST changes: -Heparin 10,000 UNITS/ 10 ML VIAL ONE; +Iopamidol 370 76% 100 ML VIAL ONE
[2021-06-25 14:37] LABS: #Eosinphils 0.1 thou/uL (0.0-0.7); #Lymphocytes 0.9 thou/uL (1.20-3.40); #Monocytes 0.7 thou/uL (0.11-0.59); #Neutrophils 5.1 thou/uL (1.40-6.50); %Basophils 0.3 % (0.0-1.0); %Eosinophils 2.1 % (0.0-10.0); %Lymphocytes 13.1 % (21.0-51.0); %Monocytes 10.5 % (0.0-10.0); Hemoglobin 9.5 g/dL (12.0-16.0); Mean Corpuscular Hemoglobin 34.6 pg (27.0-31.0); Mean Platelet Volume 6.6 fL (7.4-10.4); Platelet Count 184 thou/uL (130-400); RBC Distribution Width 12.4 % (11.5-14.5); Red Blood Cell (RBC) Count 2.75 mill/uL (4.20-5.40); White Blood Cell (WBC) Count 6.9 thou/uL (4.8-10.8)
[2021-06-25 15:00] LABS: ALT (SGPT) 60 U/L (8-55); AST (SGOT) 67 U/L (5-34); Albumin 3.1 g/dL (3.4-4.8); Alkaline Phosphatase 156 U/L (40-110); Anion Gap 25 mmol/L (10-20); BUN (Urea Nitrogen) 90 mg/dL (9.8-20.1); Bilirubin, Total 0.5 mg/dL (0.2-1.2); Calc. Creatinine Clearance 0 mL/min (70-130); Calcium 9.4 mg/dL (7.8-10.44); Carbon Dioxide 20 mmol/L (23-31); Chloride 94 mmol/L (98-107); Glucose 159 mg/dL (80-115); Lipase 24 U/L (8-78); Potassium 6.2 mmol/L (3.5-5.1); Protein, Total 7.1 g/dL (5.8-8.1); Sodium 133 mmol/L (136-145)
[2021-06-25] MEDS ORDERED: Calcium Chloride 1 GM/10 ML Abboject SYRINGE IVP SCH (15:46)
[2021-06-25] MEDS ORDERED: Insulin Regular 300 UNITS/3 ML VIAL IVP SCH (15:46)
[2021-06-25] MEDS ORDERED: Ondansetron PF 4 MG/2 ML Vial IVP PRN (15:49)
[2021-06-25] MEDS ORDERED: Sodium Bicarb 50 MEQ/50 ML Abboject 8.4% SYRINGE IVP SCH (16:00)
[2021-06-25] MEDS ORDERED: Sodium Bicarbonate 2.5 MEQ/5 ML VIAL ONE (16:05)
[2021-06-25] MEDS ORDERED: Calcium Chloride 1 GM/10 ML Abboject SYRINGE ONE (16:05)
[2021-06-25] MEDS ORDERED: Insulin Regular 300 UNITS/3 ML VIAL ONE (16:05)
[2021-06-25] MEDS ORDERED: Sodium Bicarb 50 MEQ/50 ML Abboject 8.4% SYRINGE ONE (16:07)
[2021-06-25] MEDS ORDERED: OxyCODONE IR 30 MG TAB PO PRN (17:01)
[2021-06-25] MEDS ORDERED: Labetalol HCl 100 MG/20 ML VIAL SLOW IVP PRN (17:02)
[2021-06-25] MEDS ORDERED: Loperamide HCl 2 MG CAP PO PRN (17:14)
[2021-06-25] MEDS: Budesonide 0.5 MG/2 ML NEB NEB SCH (19:22)
[2021-06-25] MEDS: hydrALAZINE 25 MG TAB PO SCH (20:19)
[2021-06-25 20:20] LABS: ALT (SGPT) 63 U/L (8-55); AST (SGOT) 69 U/L (5-34); Albumin 3.3 g/dL (3.4-4.8); Alkaline Phosphatase 173 U/L (40-110); Anion Gap 25 mmol/L (10-20); BUN (Urea Nitrogen) 88 mg/dL (9.8-20.1); Bilirubin, Total 0.5 mg/dL (0.2-1.2); Calc. Creatinine Clearance 5 mL/min (70-130); Calcium 9.8 mg/dL (7.8-10.44); Carbon Dioxide 18 mmol/L (23-31); Chloride 95 mmol/L (98-107); Globulin 3.6 g/dL (2.4-3.5); Glucose 250 mg/dL (80-115); Protein, Total 6.9 g/dL (5.8-8.1); Sodium 131 mmol/L (136-145)
[2021-06-25] MEDS: Carvedilol 25 MG TAB PO SCH (20:20)
[2021-06-25] MEDS: oxyCODONE 5 MG TAB PO PRN (20:20)
[2021-06-25 20:24] LABS: Troponin I 0.032 ng/mL (< 0.028)
[2021-06-25 20:25] LABS: Potassium 6.6 mmol/L (3.5-5.1)
[2021-06-25 20:33] LABS: Troponin I 0.031 ng/mL (< 0.028)
[2021-06-25] MEDS ORDERED: Furosemide 100 MG/10 ML VIAL SLOW IVP SCH (21:15)
[2021-06-25] MEDS ORDERED: Calcium Gluconate 4.6 MEQ in Sodium Chloride 0.9% 100 ML IVPB SCH (21:30)
[2021-06-25 22:04] LABS: Actual Bicarbonate (HCO3a) 22.3 mEq/L (22-28); Base Excess (BEa) -2.5 mEq/L (-2.0 to +3.0); CO2 Tension 38.9 mmHg (35.0-45.0); Calcium, Ionized (arterial) 1.19 mmol/L (1.12-1.30); Hemoglobin (Hb) 12.2 g/dL (12.0-16.0); O2 Tension (PaO2), arterial 101.3 mmHg (> 80.0); Potassium - ABG Lab 6.19 mmol/L (3.70-5.30); pH, Arterial 7.38 (7.35-7.45)
[2021-06-25 22:08] LABS: Puncture Site LRA
[2021-06-25 22:10] LABS: ALV-art Gradient 78.235 mmHg (0-20)
[2021-06-25] MEDS ORDERED: cloNIDine 0.1 MG TAB PO PRN (22:44)
[2021-06-25] MEDS ORDERED: Dextrose 5% in Water 1,000 ML IV PRN (22:45)
[2021-06-25] MEDS ORDERED: Insulin Regular 300 UNITS/3 ML VIAL SC PRN ×2 (22:45→22:47)
[2021-06-25] MEDS ORDERED: Dextrose 50% Abboject 50 ML SYRINGE IVP PRN (22:45)
[2021-06-25] MEDS ORDERED: HumaLOG 300 UNITS/3 ML VIAL SC PRN ×2 (22:45→22:47)
[2021-06-25] MEDS ORDERED: Sevelamer Carbonate 800 MG TAB PO SCH (23:15)
[2021-06-25] MEDS: cloNIDine 0.1 MG TAB PO PRN (23:42)
[2021-06-26 00:15] LABS: Anion Gap 25 mmol/L (10-20); BUN (Urea Nitrogen) 82 mg/dL (9.8-20.1); Calc. Creatinine Clearance 5 mL/min (70-130); Calcium 10.4 mg/dL (7.8-10.44); Carbon Dioxide 21 mmol/L (23-31); Chloride 93 mmol/L (98-107); Glucose 317 mg/dL (80-115); Potassium 5.6 mmol/L (3.5-5.1); Sodium 133 mmol/L (136-145)
[2021-06-26] MEDS: oxyCODONE 5 MG TAB PO PRN (03:50)
[2021-06-26] MEDS: cloNIDine 0.1 MG TAB PO PRN ×2 (03:50→23:43)
[2021-06-26 04:56] LABS: #Eosinphils 0.1 thou/uL (0.0-0.7); #Lymphocytes 0.7 thou/uL (1.20-3.40); #Monocytes 0.7 thou/uL (0.11-0.59); #Neutrophils 4.6 thou/uL (1.40-6.50); %Basophils 0.3 % (0.0-1.0); %Eosinophils 2.3 % (0.0-10.0); %Monocytes 10.8 % (0.0-10.0); %Neutrophils 75.6 % (42.0-75.0); Hemoglobin 9.1 g/dL (12.0-16.0); Mean Corpuscular HGB CONC 33.5 g/dL (32.0-36.0); Mean Corpuscular Hemoglobin 33.7 pg (27.0-31.0); Mean Platelet Volume 6.9 fL (7.4-10.4); Platelet Count 197 thou/uL (130-400); RBC Distribution Width 12.3 % (11.5-14.5); Red Blood Cell (RBC) Count 2.69 mill/uL (4.20-5.40); White Blood Cell (WBC) Count 6.1 thou/uL (4.8-10.8)
[2021-06-26 05:20] LABS: ALT (SGPT) 49 U/L (8-55); AST (SGOT) 44 U/L (5-34); Alkaline Phosphatase 140 U/L (40-110); Anion Gap 25 mmol/L (10-20); BUN (Urea Nitrogen) 75 mg/dL (9.8-20.1); Bilirubin, Total 0.5 mg/dL (0.2-1.2); Calc. Creatinine Clearance 5 mL/min (70-130); Calcium 9.8 mg/dL (7.8-10.44); Carbon Dioxide 19 mmol/L (23-31); Chloride 97 mmol/L (98-107); Globulin 3.7 g/dL (2.4-3.5); Glucose 227 mg/dL (80-115); Magnesium 2.4 mg/dL (1.6-2.6); Potassium 4.7 mmol/L (3.5-5.1); Protein, Total 6.7 g/dL (5.8-8.1); Sodium 136 mmol/L (136-145)
[2021-06-26 05:24] LABS: Phosphorus 10.3 mg/dL (2.3-4.7)
[2021-06-26] MEDS: Sevelamer Carbonate 800 MG TAB PO SCH ×4 (05:44→18:05)
[2021-06-26] MEDS ORDERED: NIFEdipine XL 60 MG TAB PO SCH ×2 (07:00→09:00)
[2021-06-26] MEDS: Budesonide 0.5 MG/2 ML NEB NEB SCH ×2 (07:08→19:04)
[2021-06-26] MEDS: hydrALAZINE 25 MG TAB PO SCH ×2 (08:43→20:42)
[2021-06-26] MEDS: Carvedilol 25 MG TAB PO SCH ×2 (08:43→18:06)
[2021-06-26] MEDS: Heparin 5,000 UNITS/ML VIAL SC SCH ×3 (08:44→20:42)
[2021-06-26 08:58] LABS: SARS-CoV-2 NAA Rapid Test Not Detected (NotDetected)
[2021-06-26] MEDS ORDERED: Furosemide 40 MG/4 ML VIAL SLOW IVP SCH (09:00)
[2021-06-26] MEDS ORDERED: Polyethylene Glycol 3350 17 GM Packet PO SCH (10:30)
[2021-06-26] MEDS ORDERED: Dextrose 5% in Water 1,000 ML IV PRN (10:36)
[2021-06-26] MEDS ORDERED: Insulin Glargine 30 UNITS/0.3 ML VIAL SC SCH (11:00)
[2021-06-26] MEDS ORDERED: Doxycycline 100 MG CAP PO SCH (11:00)
[2021-06-26] MEDS ORDERED: methylPREDNISolone Sod Succ 40 MG VIAL IVP SCH (11:00)
[2021-06-26] MEDS ORDERED: cloNIDine 0.1 MG TAB PO SCH (14:00)
[2021-06-26 14:32] LABS: Anion Gap 24 mmol/L (10-20); BUN (Urea Nitrogen) 77 mg/dL (9.8-20.1); Calc. Creatinine Clearance 5 mL/min (70-130); Calcium 9.1 mg/dL (7.8-10.44); Carbon Dioxide 22 mmol/L (23-31); Chloride 95 mmol/L (98-107); Glucose 233 mg/dL (80-115); Potassium 4.1 mmol/L (3.5-5.1); Sodium 137 mmol/L (136-145)
[2021-06-26] MEDS: Acetaminophen 325 MG TAB PO PRN (18:06)
[2021-06-26] MEDS: Labetalol HCl 100 MG/20 ML VIAL SLOW IVP PRN (18:19)
[2021-06-26] MEDS ORDERED: Morphine 2 MG/ML VIAL SLOW IVP PRN (20:28)
[2021-06-26] MEDS: Doxycycline 100 MG CAP PO SCH (20:41)
[2021-06-26] MEDS: guaiFENesin ER 600 MG TAB PO SCH (20:41)
[2021-06-26] MEDS: methylPREDNISolone Sod Succ 40 MG VIAL IVP SCH (20:43)
[2021-06-26] MEDS: Insulin Regular 300 UNITS/3 ML VIAL SC PRN (21:00)
[2021-06-27] MEDS: Labetalol HCl 100 MG/20 ML VIAL SLOW IVP PRN ×2 (00:44→06:00)
[2021-06-27 04:42] LABS: #Lymphocytes 0.6 thou/uL (1.20-3.40); #Monocytes 0.2 thou/uL (0.11-0.59); #Neutrophils 4.8 thou/uL (1.40-6.50); %Basophils 0.3 % (0.0-1.0); %Eosinophils 0.7 % (0.0-10.0); %Lymphocytes 9.8 % (21.0-51.0); %Monocytes 3.8 % (0.0-10.0); %Neutrophils 85.4 % (42.0-75.0); Hemoglobin 8.4 g/dL (12.0-16.0); Mean Corpuscular HGB CONC 33.5 g/dL (32.0-36.0); Mean Corpuscular Hemoglobin 33.5 pg (27.0-31.0); Mean Platelet Volume 6.7 fL (7.4-10.4); Platelet Count 200 thou/uL (130-400); White Blood Cell (WBC) Count 5.6 thou/uL (4.8-10.8)
[2021-06-27] MEDS ORDERED: hydrALAZINE 20 MG/ML VIAL SLOW IVP SCH (04:45)
[2021-06-27 05:04] LABS: Anion Gap 25 mmol/L (10-20); BUN (Urea Nitrogen) 77 mg/dL (9.8-20.1); Calc. Creatinine Clearance 5 mL/min (70-130); Calcium 9.5 mg/dL (7.8-10.44); Carbon Dioxide 22 mmol/L (23-31); Chloride 92 mmol/L (98-107); Glucose 472 mg/dL (80-115); Potassium 3.9 mmol/L (3.5-5.1); Sodium 135 mmol/L (136-145)
[2021-06-27] MEDS: Insulin Regular 300 UNITS/3 ML VIAL SC PRN ×4 (06:02→21:04)
[2021-06-27] MEDS: Budesonide 0.5 MG/2 ML NEB NEB SCH ×2 (07:08→18:32)
[2021-06-27] MEDS: Carvedilol 25 MG TAB PO SCH ×2 (08:28→17:29)
[2021-06-27] MEDS: Sevelamer Carbonate 800 MG TAB PO SCH ×3 (08:28→17:28)
[2021-06-27] MEDS: guaiFENesin ER 600 MG TAB PO SCH ×2 (08:30→21:03)
[2021-06-27] MEDS: Doxycycline 100 MG CAP PO SCH ×2 (08:30→21:03)
[2021-06-27] MEDS: Calcitriol 0.25 MCG CAP PO SCH (08:30)
[2021-06-27] MEDS: Heparin 5,000 UNITS/ML VIAL SC SCH ×2 (08:31→21:04)
[2021-06-27] MEDS: hydrALAZINE 25 MG TAB PO SCH ×2 (08:31→21:03)
[2021-06-27] MEDS: methylPREDNISolone Sod Succ 40 MG VIAL IVP SCH (08:32)
[2021-06-27] MEDS: Polyethylene Glycol 3350 17 GM Packet PO SCH (08:33)
[2021-06-27] MEDS ORDERED: Insulin Glargine 30 UNITS/0.3 ML VIAL SC SCH (09:00)
[2021-06-27] MEDS ORDERED: NIFEdipine XL 60 MG TAB PO SCH (09:00)
[2021-06-27] MEDS: cloNIDine 0.1 MG TAB PO PRN ×2 (12:03→23:45)
[2021-06-27] MEDS ORDERED: Losartan 25 MG TAB PO SCH (14:15)
[2021-06-27] MEDS ORDERED: NIFEdipine XL 30 MG TAB PO SCH (17:00)
[2021-06-28] MEDS: Labetalol HCl 100 MG/20 ML VIAL SLOW IVP PRN (02:11)
[2021-06-28] MEDS: Acetaminophen 325 MG TAB PO PRN ×2 (02:25→21:15)
[2021-06-28 04:28] LABS: Anion Gap 24 mmol/L (10-20); BUN (Urea Nitrogen) 79 mg/dL (9.8-20.1); Calc. Creatinine Clearance 5 mL/min (70-130); Calcium 10.1 mg/dL (7.8-10.44); Carbon Dioxide 22 mmol/L (23-31); Chloride 91 mmol/L (98-107); Potassium 3.9 mmol/L (3.5-5.1); Sodium 133 mmol/L (136-145)
[2021-06-28 04:29] LABS: Hemoglobin 7.8 g/dL (12.0-16.0); Mean Corpuscular HGB CONC 33.8 g/dL (32.0-36.0); Platelet Count 202 thou/uL (130-400); RBC Distribution Width 12.1 % (11.5-14.5); White Blood Cell (WBC) Count 8.4 thou/uL (4.8-10.8)
[2021-06-28 04:46] LABS: Glucose 555 mg/dL (80-115)
[2021-06-28 04:47] LABS: Band 3 % (5-11); Lymphocytes 6 % (21-51); MDiff Complete? YES; Metamyelocyte 1 % (0-0); Monocytes 3 % (0-10); Myelocyte 2 % (0-0); Neutrophil 85 % (42-75)
[2021-06-28] MEDS: Insulin Regular 300 UNITS/3 ML VIAL SC PRN ×2 (05:12→11:26)
[2021-06-28] MEDS: cloNIDine 0.1 MG TAB PO PRN ×2 (05:13→23:30)
[2021-06-28] MEDS: Budesonide 0.5 MG/2 ML NEB NEB SCH ×2 (07:27→18:42)
[2021-06-28] MEDS ORDERED: predniSONE 20 MG TAB PO SCH ×2 (08:00→18:00)
[2021-06-28] MEDS ORDERED: NIFEdipine XL 90 MG TAB PO SCH (09:00)
[2021-06-28] MEDS ORDERED: Insulin Glargine 30 UNITS/0.3 ML VIAL SC SCH ×2 (09:00)
[2021-06-28] MEDS: Sevelamer Carbonate 800 MG TAB PO SCH ×3 (09:21→17:07)
[2021-06-28] MEDS: Carvedilol 25 MG TAB PO SCH ×2 (09:21→17:09)
[2021-06-28] MEDS: guaiFENesin ER 600 MG TAB PO SCH ×2 (09:22→21:16)
[2021-06-28] MEDS: Doxycycline 100 MG CAP PO SCH ×2 (09:22→21:16)
[2021-06-28] MEDS: Heparin 5,000 UNITS/ML VIAL SC SCH ×2 (09:23→21:18)
[2021-06-28] MEDS: Calcitriol 0.25 MCG CAP PO SCH (09:24)
[2021-06-28] MEDS: hydrALAZINE 25 MG TAB PO SCH ×2 (09:24→21:16)
[2021-06-28] MEDS: Losartan 25 MG TAB PO SCH (09:25)
[2021-06-28] MEDS: Polyethylene Glycol 3350 17 GM Packet PO SCH (09:26)
[2021-06-28] MEDS ORDERED: Sodium Chloride 0.9% 250 ML IV SCH (13:15)
[2021-06-28] MEDS: Mometasone 200 MCG/Formoterol 5 MCG 120 PUFF INHALER INH SCH (18:55)
[2021-06-29] MEDS: cloNIDine 0.1 MG TAB PO PRN (03:23)
[2021-06-29 05:01] LABS: Hemoglobin A1c 7.2 % (4.0-6.0)
[2021-06-29] MEDS: Labetalol HCl 100 MG/20 ML VIAL SLOW IVP PRN ×2 (05:05→22:43)
[2021-06-29 05:19] LABS: Anion Gap 24 mmol/L (10-20); BUN (Urea Nitrogen) 85 mg/dL (9.8-20.1); Calc. Creatinine Clearance 5 mL/min (70-130); Calcium 9.7 mg/dL (7.8-10.44); Carbon Dioxide 20 mmol/L (23-31); Chloride 88 mmol/L (98-107); Potassium 4.1 mmol/L (3.5-5.1); Sodium 128 mmol/L (136-145)
[2021-06-29 05:24] LABS: Glucose 622 mg/dL (80-115)
[2021-06-29] MEDS: Insulin Regular 300 UNITS/3 ML VIAL SC PRN ×4 (05:33→21:01)
[2021-06-29] MEDS: Acetaminophen 325 MG TAB PO PRN (05:34)
[2021-06-29] MEDS ORDERED: hydrALAZINE 20 MG/ML VIAL SLOW IVP PRN (05:38)
[2021-06-29] MEDS ORDERED: Dextrose 5% in Water 1,000 ML IV PRN (05:40)
[2021-06-29] MEDS ORDERED: HumaLOG 300 UNITS/3 ML VIAL SC PRN (05:40)
[2021-06-29] MEDS ORDERED: Dextrose 50% Abboject 50 ML SYRINGE SLOW IVP PRN (05:40)
[2021-06-29 05:50] LABS: Band 7 % (5-11); Lymphocytes 5 % (21-51); MDiff Complete? YES; Mean Corpuscular HGB CONC 33.8 g/dL (32.0-36.0); Mean Corpuscular Hemoglobin 34.2 pg (27.0-31.0); Mean Platelet Volume 7.1 fL (7.4-10.4); Monocytes 1 % (0-10); Myelocyte 2 % (0-0); Neutrophil 85 % (42-75); Platelet Count 224 thou/uL (130-400); RBC Distribution Width 12.2 % (11.5-14.5); Red Blood Cell (RBC) Count 2.33 mill/uL (4.20-5.40); White Blood Cell (WBC) Count 8.2 thou/uL (4.8-10.8)
[2021-06-29] MEDS ORDERED: Insulin Regular 300 UNITS/3 ML VIAL SC PRN ×2 (06:45→09:05)
[2021-06-29] MEDS: Mometasone 200 MCG/Formoterol 5 MCG 120 PUFF INHALER INH SCH ×2 (07:04→19:22)
[2021-06-29] MEDS: Budesonide 0.5 MG/2 ML NEB NEB SCH ×2 (07:07→19:13)
[2021-06-29 07:59] LABS: Actual Bicarbonate (HCO3a) 23.9 mEq/L (22-28); Base Excess (BEa) -0.7 mEq/L (-2.0 to +3.0); CO2 Tension 38.5 mmHg (35.0-45.0); Calcium, Ionized (arterial) 1.18 mmol/L (1.12-1.30); Carboxyhemoglobin (COHb) 0.9 gm% (0.0-3.0); Hemoglobin (Hb) 6.8 g/dL (12.0-16.0); Puncture Site LBA; pH, Arterial 7.41 (7.35-7.45)
[2021-06-29] MEDS ORDERED: predniSONE 20 MG TAB PO SCH (08:00)
[2021-06-29 08:02] LABS: Glucose 439 mg/dL (80-115)
[2021-06-29] MEDS: Calcitriol 0.25 MCG CAP PO SCH (08:08)
[2021-06-29] MEDS: Losartan 25 MG TAB PO SCH (08:08)
[2021-06-29] MEDS: Carvedilol 25 MG TAB PO SCH ×3 (08:08→21:00)
[2021-06-29] MEDS: Doxycycline 100 MG CAP PO SCH ×2 (08:09→20:59)
[2021-06-29] MEDS: Polyethylene Glycol 3350 17 GM Packet PO SCH (08:09)
[2021-06-29] MEDS: hydrALAZINE 25 MG TAB PO SCH ×2 (08:09→21:54)
[2021-06-29] MEDS: guaiFENesin ER 600 MG TAB PO SCH ×2 (08:09→20:59)
[2021-06-29] MEDS: Sevelamer Carbonate 800 MG TAB PO SCH ×3 (08:09→17:36)
[2021-06-29] MEDS: Heparin 5,000 UNITS/ML VIAL SC SCH (08:09)
[2021-06-29] MEDS ORDERED: Insulin Glargine 30 UNITS/0.3 ML VIAL SC SCH ×2 (09:00→21:00)
[2021-06-29] MEDS ORDERED: NIFEdipine XL 60 MG TAB PO SCH (09:00)
[2021-06-30] MEDS: hydrALAZINE 25 MG TAB PO SCH ×3 (01:17→20:58)
[2021-06-30] MEDS: cloNIDine 0.1 MG TAB PO PRN ×2 (01:17→05:30)
[2021-06-30] MEDS: Labetalol HCl 100 MG/20 ML VIAL SLOW IVP PRN (03:54)
[2021-06-30] MEDS: Insulin Regular 300 UNITS/3 ML VIAL SC PRN ×3 (05:42→22:34)
[2021-06-30] MEDS: Mometasone 200 MCG/Formoterol 5 MCG 120 PUFF INHALER INH SCH ×2 (07:12→18:53)
[2021-06-30] MEDS: Budesonide 0.5 MG/2 ML NEB NEB SCH (07:12)
[2021-06-30] MEDS ORDERED: NIFEdipine XL 60 MG TAB PO SCH (09:00)
[2021-06-30] MEDS: Sevelamer Carbonate 800 MG TAB PO SCH ×3 (09:13→18:08)
[2021-06-30 09:14] LABS: Anion Gap 22 mmol/L (10-20); BUN (Urea Nitrogen) 89 mg/dL (9.8-20.1); Calc. Creatinine Clearance 5 mL/min (70-130); Calcium 9.1 mg/dL (7.8-10.44); Carbon Dioxide 21 mmol/L (23-31); Chloride 92 mmol/L (98-107); Glucose 69 mg/dL (80-115); Potassium 3.7 mmol/L (3.5-5.1); Sodium 131 mmol/L (136-145)
[2021-06-30] MEDS: Losartan 25 MG TAB PO SCH (09:14)
[2021-06-30] MEDS: Carvedilol 25 MG TAB PO SCH (09:14)
[2021-06-30] MEDS: guaiFENesin ER 600 MG TAB PO SCH ×2 (09:14→20:10)
[2021-06-30] MEDS: Doxycycline 100 MG CAP PO SCH ×2 (09:14→20:10)
[2021-06-30] MEDS: Polyethylene Glycol 3350 17 GM Packet PO SCH (09:15)
[2021-06-30] MEDS: Calcitriol 0.25 MCG CAP PO SCH (09:21)
[2021-06-30] MEDS ORDERED: Epoetin (ESRD) 10,000 UNITS/ML VIAL SC SCH (12:00)
[2021-06-30] MEDS ORDERED: hydrALAZINE 25 MG TAB PO SCH (14:04)
[2021-06-30] MEDS: Carvedilol 6.25 MG TAB PO SCH (18:09)
[2021-06-30] MEDS: NIFEdipine XL 60 MG TAB PO SCH (20:10)
[2021-07-01] MEDS: hydrALAZINE 25 MG TAB PO SCH ×3 (04:59→21:30)
[2021-07-01 05:18] LABS: Anion Gap 22 mmol/L (10-20); BUN (Urea Nitrogen) 101 mg/dL (9.8-20.1); Calc. Creatinine Clearance 5 mL/min (70-130); Calcium 9.4 mg/dL (7.8-10.44); Carbon Dioxide 22 mmol/L (23-31); Chloride 88 mmol/L (98-107); Glucose 353 mg/dL (80-115); Sodium 128 mmol/L (136-145)
[2021-07-01 05:28] LABS: Band 5 % (5-11); Eosinophils 1 % (0-10); Hemoglobin 8.4 g/dL (12.0-16.0); Lymphocytes 9 % (21-51); MDiff Complete? YES; Mean Corpuscular HGB CONC 34.1 g/dL (32.0-36.0); Mean Corpuscular Hemoglobin 33.5 pg (27.0-31.0); Mean Corpuscular Volume 98.1 fL (78.0-98.0); Mean Platelet Volume 6.6 fL (7.4-10.4); Monocytes 6 % (0-10); Neutrophil 79 % (42-75); Platelet Count 229 thou/uL (130-400); RBC Distribution Width 12.5 % (11.5-14.5); Red Blood Cell (RBC) Count 2.51 mill/uL (4.20-5.40)
[2021-07-01] MEDS: Insulin Regular 300 UNITS/3 ML VIAL SC PRN ×3 (05:48→21:33)
[2021-07-01] MEDS: Mometasone 200 MCG/Formoterol 5 MCG 120 PUFF INHALER INH SCH ×2 (07:24→19:14)
[2021-07-01] MEDS: Sevelamer Carbonate 800 MG TAB PO SCH ×3 (08:57→16:30)
[2021-07-01] MEDS: Calcitriol 0.25 MCG CAP PO SCH (08:57)
[2021-07-01] MEDS: NIFEdipine XL 60 MG TAB PO SCH (08:58)
[2021-07-01] MEDS: Polyethylene Glycol 3350 17 GM Packet PO SCH (08:59)
[2021-07-01] MEDS: Carvedilol 6.25 MG TAB PO SCH ×2 (08:59→16:31)
[2021-07-01] MEDS: guaiFENesin ER 600 MG TAB PO SCH ×2 (08:59→21:30)
[2021-07-01] MEDS: predniSONE 20 MG TAB PO SCH (08:59)
[2021-07-01] MEDS: Doxycycline 100 MG CAP PO SCH ×2 (08:59→21:30)
[2021-07-01] MEDS ORDERED: NIFEdipine XL 60 MG TAB PO SCH (09:00)
[2021-07-01 14:49] VITALS: BMI 17.9
[2021-07-01] MEDS ORDERED: NIFEdipine XL 30 MG TAB PO SCH (21:00)
[2021-07-02] MEDS ORDERED: traMADol HCl 50 MG TAB PO SCH (01:00)
[2021-07-02] MEDS: Insulin Regular 300 UNITS/3 ML VIAL SC PRN ×3 (02:42→09:37)
[2021-07-02] MEDS: hydrALAZINE 25 MG TAB PO SCH ×2 (05:54→14:02)
[2021-07-02] MEDS: Mometasone 200 MCG/Formoterol 5 MCG 120 PUFF INHALER INH SCH (07:00)
[2021-07-02 07:45] VITALS: TEMP 98.1
[2021-07-02] MEDS ORDERED: NIFEdipine XL 60 MG TAB PO SCH (09:00)
[2021-07-02] MEDS: Carvedilol 6.25 MG TAB PO SCH ×2 (09:34→15:47)
[2021-07-02] MEDS: Sevelamer Carbonate 800 MG TAB PO SCH ×3 (09:34→15:48)
[2021-07-02] MEDS: Doxycycline 100 MG CAP PO SCH (09:35)
[2021-07-02] MEDS: predniSONE 20 MG TAB PO SCH (09:35)
[2021-07-02] MEDS: Polyethylene Glycol 3350 17 GM Packet PO SCH (09:35)
[2021-07-02] MEDS: guaiFENesin ER 600 MG TAB PO SCH (09:35)
[2021-07-02 09:37] VITALS: BP 160/50
[2021-07-02] MEDS: Calcitriol 0.25 MCG CAP PO SCH (11:04)
== END 2021-07-02 17:17 | disposition home or self-care (01) | DRG 291 ==
LOC: ERS 13:52 → 2NO 15:49
PROVIDERS: ADMIT Internal Medicine; ATTEND Internal Medicine
PROC: 3E1M39Z Irrigation of Peritoneal Cavity using Dialysate, Percutaneous Approach (ICD-10-PCS; principal; 2021-06-25)
DX: I13.2 Hypertensive heart and chronic kidney disease with heart failure and with stage 5 chronic kidney disease, or end stage renal disease (principal); J96.01 Acute respiratory failure with hypoxia; I50.33 Acute on chronic diastolic (congestive) heart failure; N18.6 End stage renal disease; N17.9 Acute kidney failure, unspecified; R64 Cachexia; J44.1 Chronic obstructive pulmonary disease with (acute) exacerbation; Z68.1 Body mass index [BMI] 19.9 or less, adult; E44.0 Moderate protein-calorie malnutrition; E87.1 Hypo-osmolality and hyponatremia; E87.2 Acidosis; N25.81 Secondary hyperparathyroidism of renal origin; Z20.822 Contact with and (suspected) exposure to COVID-19; E87.5 Hyperkalemia; E11.22 Type 2 diabetes mellitus with diabetic chronic kidney disease; R19.7 Diarrhea, unspecified; B19.20 Unspecified viral hepatitis C without hepatic coma; D63.1 Anemia in chronic kidney disease; I16.0 Hypertensive urgency; F17.210 Nicotine dependence, cigarettes, uncomplicated; E11.65 Type 2 diabetes mellitus with hyperglycemia; R00.1 Bradycardia, unspecified; T38.0X5A Adverse effect of glucocorticoids and synthetic analogues, initial encounter; R53.81 Other malaise; I27.81 Cor pulmonale (chronic); Z66 Do not resuscitate; M54.9 Dorsalgia, unspecified; F32.A Depression, unspecified; F41.9 Anxiety disorder, unspecified; R79.89 Other specified abnormal findings of blood chemistry; G89.4 Chronic pain syndrome; Z99.2 Dependence on renal dialysis; K21.9 Gastro-esophageal reflux disease without esophagitis; Z88.6 Allergy status to analgesic agent; Z79.899 Other long term (current) drug therapy; Z98.41 Cataract extraction status, right eye; Z98.42 Cataract extraction status, left eye
CPT/HCPCS: 36415; 36416; 36600; 71045; 71275; 80048; 80053; 82010; 82553; 82805; 83036; 83690; 83735; 83880; 84100; 84484; 85025; 85379; 85610; 90945; 93005; 93306; 94640; 96365; G0257; J0360; J0610; J1644; J1815; J1940; J2270; J2405; J2920; J3490; J7030; J7512; J7620; J7626; Q4081; Q9967